=== PATIENT | male | born 1990 | race Caucasian/White ===

== ENCOUNTER 2020-07-01 12:11 | Emergency (ER) | payer OTHER ==
[~2020-07-01] VITALS: Ht 175.3 cm; Wt 111.1 kg
[2020-07-01 12:11] VITALS: BP_SYST 159
[2020-07-01] MEDS ORDERED: ALLO300T2 PO (13:20)
[2020-07-01 13:28] VITALS: BP_SYST 159
== END 2020-07-01 13:28 | disposition home or self-care (01) ==
LOC: SED 12:11
DX: M79.674 Pain in right toe(s) (principal); M10.9 Gout, unspecified
CPT/HCPCS: 99283